=== PATIENT | female | born 2000 | race Caucasian/White ===

== ENCOUNTER 2021-06-18 18:24 | Emergency (ER) | payer BC, MEDICAID ==
[~2021-06-18 18:24] MED LIST: Iopamidol-370 76% 500 ML 1 ML ONE
[2021-06-18 18:56] LABS: #Lymphocytes 1.3 thou/uL (1.20-3.40); #Monocytes 0.4 thou/uL (0.11-0.59); #Neutrophils 7.7 thou/uL (1.40-6.50); %Basophils 0.1 % (0.0-1.0); %Eosinophils 0.2 % (0.0-10.0); %Lymphocytes 14.1 % (28.0-48.0); %Monocytes 4.7 % (0.0-4.0); %Neutrophils 80.9 % (31.0-61.0); Hemoglobin 14.8 g/dL (12.0-16.0); Mean Corpuscular HGB CONC 33.4 g/dL (32.0-36.0); Mean Corpuscular Hemoglobin 30.1 pg (25.0-35.0); Mean Corpuscular Volume 90.2 fL (78.0-98.0); Mean Platelet Volume 7.4 fL (7.4-10.4); Platelet Count 310 thou/uL (130-400); RBC Distribution Width 11.2 % (11.5-14.5); Red Blood Cell (RBC) Count 4.91 mill/uL (4.00-5.20); White Blood Cell (WBC) Count 9.5 thou/uL (4.8-10.8)
[2021-06-18 19:19] LABS: ALT (SGPT) 22 U/L (8-55); AST (SGOT) 15 U/L (5-30); Albumin 4.6 g/dL (3.5-5.0); Alkaline Phosphatase 59 U/L (40-100); Anion Gap 18 mmol/L (10-20); BUN (Urea Nitrogen) 11 mg/dL (8.4-21.0); Bilirubin, Total 0.4 mg/dL (0.2-1.2); Calc. Creatinine Clearance 0 mL/min (70-130); Calcium 9.9 mg/dL (7.8-10.44); Carbon Dioxide 18 mmol/L (22-29); Chloride 105 mmol/L (98-107); Globulin 3.2 g/dL (2.4-3.5); Glucose 115 mg/dL (70-105); Potassium 4.2 mmol/L (3.5-5.1); Protein, Total 7.8 g/dL (6.0-8.3); Sodium 137 mmol/L (136-145)
[2021-06-18] MEDS ORDERED: Morphine 4 MG/ML VIAL ONE (19:24)
[2021-06-18 20:08] LABS: Bilirubin Negative (Negative); Blood, Urine Negative (Negative); Clarity Clear (Clear); Glucose, Urine (Dipstick) Normal (Negative); Ketone, Urine Negative (Negative); Leukocyte Negative Leu/uL (Negative); Nitrite Negative (Negative); Pregnancy Test - Urine (BHCG) Negative (Negative); Pregu Control Background? CLEAR/WHITE (CLR/WHITE); Pregu Control Bar Appear? YES (CONTROL BAR); Protein, Urine (Dipstick) Negative (Neg-Trace); Specific Gravity 1.011 (1.002-1.036); Specific Gravity, Urine 1.011 (1.002-1.036); Urobilinogen Normal mg/dL (Less than 2); pH, Urine 5.5 (5.0-9.0)
[2021-06-18] MEDS ORDERED: Morphine 2 MG/ML VIAL ONE (21:42)
[2021-06-18 22:04] LABS: Lactic Acid 2.9 mmol/L (0.5-2.2)
== END 2021-06-18 22:50 | disposition home or self-care (01) ==
LOC: ERS 18:24
DX: R10.84 Generalized abdominal pain (principal)
CPT/HCPCS: 36415; 74177; 80053; 81003; 81025; 83605; 85025; 87040; 87086; 96374; 96376; J2270; Q9967

== ENCOUNTER 2023-11-17 03:05 | Emergency (ER) | payer BC ==
[2023-11-17] MEDS ORDERED: Ketorolac Tromethamine 30 MG (1 mL) VIAL ONE (03:54)
== END 2023-11-17 04:25 | disposition home or self-care (01) ==
LOC: ERS 03:05
DX: M94.0 Chondrocostal junction syndrome [Tietze] (principal); F17.290 Nicotine dependence, other tobacco product, uncomplicated
CPT/HCPCS: 71045; 93005; 96372; J1885